=== PATIENT | male | born 1975 | race Caucasian/White ===

== ENCOUNTER 2017-04-01 11:04 | Emergency (ER) | payer SELFPAY ==
[2017-04-01 11:18] VITALS: BP 134/94
--- NOTE | 2017-04-01 12:08 | EDM.PDOC ---
ED HPI GENERAL MEDICAL PROBLEM - General Chief Complaint: Upper Extremity Injury/Pain Stated Complaint: RT ARM PAIN Time Seen by Provider: 04/01/17 11:44 Source of Information: Reports: Patient History Limitations: Reports: No Limitations - History of Present Illness INITIAL COMMENTS - FREE TEXT/NARRATIVE: 41-year-old male presents for evaluation and treatment of weakness to the bilateral arms and legs. He reports that his legs feel "hard". He states this has been going on for the last few months. He states now over the last few weeks it has been more constant. He reports associated symptoms of dizziness. He denies any fevers, headaches, neck pain, back pain, nausea, vomiting, chest pain, shortness of breath, abdominal pain, diarrhea, epistaxis, bleeding from the gums, easy bruising, melena, hematochezia, numbness or tingling in the extremities. Patient reports he was ill with a cough and cold about 3 months ago. Reports that it was present for about one month but resolved on its own. He denies any recent travel. Patient reports a past medical history of hypertension and high cholesterol. He is only on [id number] vitamins including calcium, vitamin B and magnesium. He states he started these only recently. Location: Reports: Upper Extremity, Left, Upper Extremity, Right, Lower Extremity, Left, Lower Extremity, Right Associated Symptoms: Reports: Weakness. Denies: Chest Pain, Fever/Chills, Headaches, Nausea/Vomiting, Shortness of Breath, Syncope - Related Data Allergies Allergy/AdvReac Type Severity Reaction Status Date / Time peanut Allergy Rash Verified 04/01/17 11:18 Home Meds: Home Meds Calcium Carbonate [Calcium] 500 mg PO DAILY 04/01/17 [History] c Hair Repair 1 tab PO DAILY 04/01/17 [History] Vitamin B Complex 1 each PO DAILY 04/01/17 [History] Past Medical History - Past Health History Medical/Surgical History: Denies Medical/Surgical History HEENT History: Reports: Other (See Below) Other HEENT History: seasonal allergies Cardiovascular History: Reports: High Cholesterol, Hypertension Gastrointestinal History: Reports: GERD Genitourinary History: Reports: Renal Calculus Social & Family History - Family History Family Medical History: Noncontributory - Tobacco Use Smoking Status *Q: Never Smoker - Caffeine Use Caffeine Use: Reports: Coffee - Recreational Drug Use Recreational Drug Use: No Review of Systems - Review of Systems Review Of Systems: See Below Constitutional: Reports: Weakness. Denies: Fever Nose: Denies: Epistaxis Mouth/Throat: Denies: Bleeding Respiratory: Denies: Shortness of Breath Cardiovascular: Denies: Chest Pain GI/Abdominal: Denies: Abdominal Pain, Bloody Stool, Diarrhea, Nausea, Vomiting Musculoskeletal: Denies: Neck Pain, Back Pain Neurological: Reports: Dizziness. Denies: Headache, Numbness, Syncope, Tingling , Difficulty Walking ED EXAM, GENERAL - Physical Exam Exam: See Below Exam Limited By: No Limitations General Appearance: Alert, WD/WN, No Apparent Distress Eye Exam: Bilateral Eye: PERRL Ears: Normal External Exam Nose: Normal Inspection Throat/Mouth: Normal Inspection, Normal Lips, Normal Teeth, Normal Gums, Normal Voice, No Airway Compromise Head: Atraumatic, Normocephalic Neck: Normal Inspection, Supple, Non-Tender, Full Range of Motion Respiratory/Chest: No Respiratory Distress, Lungs Clear, Normal Breath Sounds Cardiovascular: Normal Peripheral Pulses, Regular Rate, Rhythm, No Murmur Peripheral Pulses: 2+: Radial (L), Radial (R), Posterior Tibial (L), Posterior Tibial (R), Dorsalis Pedis (L), Dorsalis Pedis (R) GI/Abdominal: Normal Bowel Sounds, Soft, Non-Tender Back Exam: Normal Inspection Extremities: Normal Inspection, Normal Range of Motion, Other (strength testing : 5/5 forearm flexion, forearm extension, wrist extension, wrist flexion, sleep medicine physician, hip flexion, hip adduction, hip abduction, knee flexion, knee extension, dorsfiflexion and plantar flexion. ) Neurological: Alert, Oriented, Normal Cognition, Normal Gait Psychiatric: Normal Affect, Normal Mood Skin Exam: Warm, Dry, Normal Color Course - Vital Signs Last Recorded V/S: Last Vital Signs Temp 37.2 C 04/01/17 11:10 Pulse 89 04/01/17 11:10 Resp 18 04/01/17 11:10 BP 134/94 H 04/01/17 11:10 Pulse Ox 98 04/01/17 11:10 Orthostatic Blood Pressure [ 140/95 Standing] Orthostatic Blood Pressure [ 148/98 Sitting] Orthostatic Blood Pressure [ 136/90 Supine] - Orders/Labs/Meds Orders: Active Orders 24 hr Category Date Time Status Orthostatic Vital Signs [RC] ASDIRECTED Care 04/01/17 11:57 Active Labs: Laboratory Tests 04/01/17 04/01/17 04/01/17 Range/Units 12:10 12:15 12:15 WBC 4.59 (4.23-9.07) K/mm3 RBC 5.90 (4.63-6.08) M/mm3 Hgb 17.4 (13.7-17.5) gm/L Hct 50.7 (40.1-51.0) % MCV 85.9 (79.0-92.2) fl MCH 29.5 (25.7-32.2) pg MCHC 34.3 (32.2-35.5) g/dl RDW Std Deviation 39.8 (35.1-43.9) fL Plt Count 169 (163-337) K/mm3 MPV 9.6 (9.4-12.3) fl Neut % (Auto) 50.6 (34.0-67.9) % Lymph % (Auto) 37.0 (21.8-53.1) % [place] % (Auto) 7.4 (5.3-12.2) % Eos % (Auto) 4.6 (0.8-7.0) Baso % (Auto) 0.4 (0.1-1.2) % Neut # (Auto) 2.32 (1.78-5.38) K/mm3 Lymph # (Auto) 1.70 (1.32-3.57) K/mm3 [place] # (Auto) 0.34 (0.30-0.82) K/mm3 Eos # (Auto) 0.21 (0.04-0.54) K/mm3 Baso # (Auto) 0.02 (0.01-0.08) K/mm3 Sodium 141 (136-145) mEq/L Potassium 4.2 (3.5-5.1) mEq/L Chloride 105 (98-107) mEq/L Carbon Dioxide 28 (21-32) mEq/L Anion Gap 12.2 (5-15) BUN 15 (7-18) mg/dL Creatinine 0.9 (0.7-1.3) mg/dL Est Cr Clr Drug Dosing 96.49 mL/min Estimated GFR (MDRD) > 60 (>60) mL/min BUN/Creatinine Ratio 16.7 (14-18) Glucose 100 (74-106) mg/dL Calcium 8.9 (8.5-10.1) mg/dL Magnesium 2.2 (1.8-2.4) mg/dl Total Bilirubin 0.7 (0.2-1.0) mg/dL AST 30 (15-37) U/L ALT 47 (16-63) U/L Alkaline Phosphatase 106 (46-116) U/L Total Protein 8.1 (6.4-8.2) g/dl Albumin 4.5 (3.4-5.0) g/dl Globulin 3.6 gm/dL Albumin/Globulin Ratio 1.3 (1-2) TSH 3rd Generation 1.178 (0.358-3.74) uIU/mL Urine Color Yellow (Yellow) Urine Appearance Clear (Clear) Urine pH 7.0 (5.0-8.0) Ur Specific [place] 1.025 (1.005-1.030) Urine Protein Negative (Negative) Urine Glucose (UA) Negative (Negative) Urine Ketones Trace H (Negative) Urine Occult Blood Negative (Negative) Urine Nitrite Negative (Negative) Urine Bilirubin Negative (Negative) Urine Urobilinogen 0.2 (0.2-1.0) Ur Leukocyte Esterase Negative (Negative) - Re-Assessments/Exams Free Text/Narrative Re-Assessment/Exam: 04/01/17 13:38 Labs returned. WBC is 4.59, hgb os 17.4 and plts are 169 Sodium is 141, potassium is 4.2 and chloride is 105. Anion gap is 12.2. Glucose is 100. Mag is 2.2 TSH is 1.178 UA shows trace ketones. I reviewed the labs with the patient. At this potin it is unclear what is causing his generalized weakness. I could no appreciate any weakness on exam. I recommend follow-up with family med for further testing and evaluation. Patient states he has vitamin D at home which he has not yet started. I encouraged him to start this. Discharge instructions as documented. Departure - Departure Time of Disposition: 13:37 Disposition: Home, Self-Care 01 Condition: Good Clinical Impression: Weakness generalized - Discharge Information Instructions: Weakness, [id number] Referrals: PCP,None [Primary Care Provider] - Mart Adame [Physician] - Forms: ED Department Discharge Additional Instructions: Follow-up with family medicine if you continue to have symptoms. Recommend Dr. Monte. Please call [phone] Monte. Rest. make sure you are drinking plenty of fluids. Please return to the ER if your symptoms change or worsen. - My Orders Last 24 Hours: My Active Orders 04/01/17 11:57 Orthostatic Vital Signs [RC] ASDIRECTED - Assessment/Plan Last 24 Hours: My Active Orders 04/01/17 11:57 Orthostatic Vital Signs [RC] ASDIRECTED
== END 2017-04-01 13:46 | disposition home or self-care (01) ==
LOC: JD.ED 11:04
DX: R53.1 Weakness (principal); I10 Essential (primary) hypertension; E78.00 Pure hypercholesterolemia, unspecified; K21.9 Gastro-esophageal reflux disease without esophagitis; Z87.442 Personal history of urinary calculi; Z91.010 Allergy to peanuts
CPT/HCPCS: 36415; 80053; 81003; 83735; 84443; 85025; 99282; 99285